=== PATIENT | male | born 1995 | race African-American/Black ===

== ENCOUNTER 2020-03-10 22:20 | Emergency (ER) | payer OTHER ==
[~2020-03-10] VITALS: Ht 190.5 cm; Wt 165.6 kg
--- NOTE | ~2020-03-10 | EMS ---
[place] [address] EMS Patient Care Report Name: RAKESH FRANKLIN Room #: REG GABRIELLE Núñez#: [id number] Admission: 03/10/20 Attend Phys: Discharge: Date of : [birth year] Report #: [id number] THIS REPORT FOR: //name// Report Transmitted: 03/11/2020 07:36 EMS Care Summary [place], [place]/[facility] Incident [id number] @ 03/10/2020 21:38 Incident Location [address] Patient RAKESH FRANKLIN Male, 24 Years 1995 Patient Address [address] [address] [place] [address] Patient History None Reported, Patient Allergies No known allergies, Patient Medications None Reported, Chief Complaint It's hard to breathe Disposition Transported No Lights/[place] [facility] Reason Breathing Problem Transported To [facility] [place] Narrative Called to the scene for a SOB, possible Covid pt. Upon arrival, P36 on the scene. Pt was VILLAFUERTE x 3 in moderate to severe resp distress. He stated he got his Covid test results back yesterday and they were positive[place] [address] EMS Patient Care Report Name: RAKESH FRANKLIN Room #: REG Lisseth.#: [id number] Admission: 03/10/20 Attend Phys: Discharge: Date of : [birth year] Report #: [id number] distress and a little diaphoretic. Pt had a mask on. He was moved to the EMS cot and loaded into the ambulance w/o incident. Vitals obtained. Duo-Neb given with exhaust fan on and doors open. 18g IV and D-stick. Solumedrol given. Vitals repeated. En route: pt said he was doing better, RR to [facility]. Arrived: pt taken to ER #4 and moved to their bed w/o incident. Pt care & report to ER staff. Initial Vitals @22:01P: 107,CO: 2, @22:00P: 112,CO: 4,SpO2: 97, @22:03P: 104,R: 24,BP: 142/86,Pain: 0/10,GCS: 15,Glucose: 75,CO: 0,SpO2: 95,Revised Trauma: 12, @22:00P: 111,CO: 5,SpO2: 100, @21:59P: 115,CO: 1,SpO2: 95, @22:13P: 106,R: 24,BP: 111/74,Pain: 0/10,GCS: 15,CO: 0,SpO2: 100,Revised Trauma: 12, Assessments @21:48MENTAL:Person Oriented,Time Oriented,Place Oriented,Event Oriented,SKIN:Diaphoresis,HEENT:LUNG SOUNDS:ABDOMEN:PELVIS//GI:EXTREMITIES:Left Arm: No Abnormalities,Right Arm: No Abnormalities,Left Leg: No Abnormalities,Right Leg: No Abnormalities,PULSE:Radial: 2+ Normal,NEURO:No Abnormalities, Impression COVID-19 - Exposure to confirmed patient Procedures @22:00Saline Lock 30cc (18 ga) Site: Antecubital-LeftResponse: UnchangedSucceeded@21:48ALS AssessmentResponse: UnchangedSucceeded@22:01Solu-Medrol - 125 Milligrams (mg) - Intravenous (IV)Response: Improved@21:59Albuterol - 2.5 Milligrams (mg) - NebulizedResponse: Improved@21:59Albuterol - 2.5 Milligrams (mg) - NebulizedResponse: Improved@21:59Atrovent - 0.5 Milligrams (mg) - NebulizedResponse: Improved@21:53StretcherResponse: Unchanged@21:59Oxygen FlowRate: 8 Device: Nebulizer Response: UnchangedSucceeded Timeline 21:38,Call Received 21:38,Dispatch Notified 21:38,Dispatched 21:41,En Route 21:46,On Scene 21:48,At Patient 21:48,ALS Assessment,Response: UnchangedSucceeded, 21:53,Stretcher,Response: [place] [address] EMS Patient Care Report Name: RAKESH FRANKLIN Room #: LOLIS Núñez#: [id number] Admission: 03/10/20 Attend Phys: Discharge: Date of : [birth year] Report #: [id number] 21:59,BP: / M,PULSE: 115,RR: R,SPO2: 95 Ox,ETCO2: ,BG: ,PAIN: ,GCS: , 21:59,Oxygen FlowRate: 8 Device: Nebulizer Response: UnchangedSucceeded, 21:59,Albuterol - 2.5 Milligrams (mg) - Nebulized,Response: Improved 21:59,Albuterol - 2.5 Milligrams (mg) - Nebulized,Response: Improved 21:59,Atrovent - 0.5 Milligrams (mg) - Nebulized,Response: Improved 22:00,Saline Lock 30cc 18 ga Site: Antecubital-Left,Response: UnchangedSucceeded, 22:00,BP: / M,PULSE: 112,RR: R,SPO2: 97 Ox,ETCO2: ,BG: ,PAIN: ,GCS: , 22:00,BP: / M,PULSE: 111,RR: R,SPO2: 100 Ox,ETCO2: ,BG: ,PAIN: ,GCS: , 22:01,BP: / M,PULSE: 107,RR: R,SPO2: Ox,ETCO2: ,BG: ,PAIN: ,GCS: , 22:01,Solu-Medrol - 125 Milligrams (mg) - Intravenous (IV),Response: Improved 22:02,Depart Scene 22:03,BP: 142/86 M,PULSE: 104,RR: 24 R,SPO2: 95 Ox,ETCO2: ,B,PAIN: 0,GCS: 15, 22:10,At Destination 22:13,BP: 111/74 M,PULSE: 106,RR: 24 R,SPO2: 100 Ox,ETCO2: ,BG: ,PAIN: 0,GCS: 15, 22:34,Call Closed Disclaimer v1.1 Copyright 2020 [employer] This EMS Care Summary contains data elements from the applicable legal record (which may be displayed differently). It is designed to provide pertinent information for the following purposes: continuity of care, clinical quality, and state data reporting. The complete legal record is available to ED staff and administrators of the receiving hospital in [employer] Patient Tracker. All data is provided "as is."
[2020-03-10] MEDS ORDERED: AZITHROMYCIN250 MG PO (23:23)
[2020-03-10] MEDS ORDERED: PREDNISONE50 MG PO (23:23)
[2020-03-10] MEDS ORDERED: PROMETH-CODEIN 65 ML PO (23:24)
[2020-03-10 23:47] VITALS: BP 126/72
== END 2020-03-10 23:48 | disposition home or self-care (01) ==
LOC: ER 22:20
DX: U07.1 COVID-19 (principal); R06.02 Shortness of breath